=== PATIENT | male | born 1990 | race Caucasian/White ===

== ENCOUNTER 2016-10-24 13:44 | Emergency (ER) | payer MEDICAID ==
[2016-01-31 08:30] VITALS: BMI 24.4
[~2016-10-24 13:44] MED LIST: CATAPRES0.2 MG PO; DILAUDID4 MG PO; HYDROCODONE-APA1 TAB PO; PERCOCET 10/3251 TA1 PO; VALIUM5 MG PO
== END 2016-10-24 16:06 | disposition home or self-care (01) ==
LOC: D.ER 13:44
DX: M25.511 Pain in right shoulder (principal); S46.911A Strain of unspecified muscle, fascia and tendon at shoulder and upper arm level, right arm, initial encounter; X58.XXXA Exposure to other specified factors, initial encounter; Y93.89 Activity, other specified; Y92.89 Other specified places as the place of occurrence of the external cause; M25.411 Effusion, right shoulder; F41.9 Anxiety disorder, unspecified; F17.200 Nicotine dependence, unspecified, uncomplicated

== ENCOUNTER 2017-01-12 19:50 | Emergency (ER) | payer MEDICAID ==
[2016-01-31 08:30] VITALS: BMI 24.4
== END 2017-01-12 21:54 | disposition home or self-care (01) ==
LOC: D.ER 19:50
DX: S00.83XA Contusion of other part of head, initial encounter (principal); Y04.2XXA Assault by strike against or bumped into by another person, initial encounter; Y93.89 Activity, other specified; Y92.89 Other specified places as the place of occurrence of the external cause; S09.90XA Unspecified injury of head, initial encounter

== ENCOUNTER 2018-09-07 07:45 | Observation (INO) | payer MEDICAID ==
[~2018-09-07] VITALS: Ht 182.9 cm; Wt 90.9 kg
[2018-09-07 09:59] LABS: INR 1.08 (0.85-1.17); PROTIME 13.5 SECONDS (11.6-15.0)
[2018-09-07 10:04] LABS: ALBUMIN 4.2 g/dL (3.4-5.0); ALKALINE PHOSPHATASE 61 U/L (46-116); ALT (SGPT) 20 U/L (10-68); BILIRUBIN - TOTAL 0.51 mg/dL (0.2-1.3); CALC OSMOLALITY 280 mosm/kg (275-300); CALCIUM 8.6 mg/dL (8.5-10.1); CARBON DIOXIDE 22.4 mmol/L (21.0-32.0); CHLORIDE - SERUM 104 mmol/L (98-107); CREATININE - SERUM 0.9 mg/dL (0.6-1.3); GLUCOSE 109 mg/dL (74-106); MAGNESIUM - SERUM 2.1 mg/dL (1.8-2.4); POTASSIUM - SERUM 3.7 mmol/L (3.5-5.1); SODIUM 139 mmol/L (136-145); UREA NITROGEN 17 mg/dL (7-18); eGFR NON AFRICAN AMERICAN > 90 mL/min (90-120)
[2018-09-07 10:18] LABS: BASOPHILS 0.4 % (0-2); EOSINOPHILS 0.4 % (0-7); HEMATOCRIT 39.6 % (42.0-54.0); HEMOGLOBIN 13.8 g/dL (13.5-17.5); IMMATURE GRANULOCYTES 0.3 % (0-5); LYMPHOCYTES 14.5 % (15-50); MCH 29.6 pg (26.0-34.0); MCHC 34.8 g/dL (31.0-37.0); MCV 84.8 fL (80.0-100.0); MEAN PLATELET VOLUME 10.4 fL (7.4-10.4); MONOCYTES 9.8 % (2-11); NEUTROPHILS 74.6 % (40-80); PLATELET COUNT 375 10x3/uL (130-400); RBC 4.67 10x6/uL (4.20-6.10); RDW 12.5 % (11.5-14.5)
--- NOTE | 2018-09-07 10:20 | NUR ---
C-COLLAR REMOVED PER TREATING PROVIDER.
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
--- NOTE | 2018-09-07 10:52 | NUR ---
DRIED CLOOD CLEANSED FROM PT'S FACE, REVEALING A SMALL LACERATION TO THE LEFT SIDE OF PT'S NOSE. SCABBING PRESENT AND AREA IS NO LONGER BLEEDING. PT REMAINS ALERT AND ORIENTED X4.
--- NOTE | 2018-09-07 10:55 | NUR ---
SLING APPLIED TO PT'S LUE.
[2018-09-07 11:39] LABS: APPEARANCE CLEAR (CLEAR); BILIRUBIN NEGATIVE (NEGATIVE); COLOR YELLOW (YELLOW); GLUCOSE NEGATIVE (NEGATIVE); KETONE NEGATIVE (NEGATIVE); NITRITE NEGATIVE (NEGATIVE); PROTEIN NEGATIVE (NEGATIVE); SPECIFIC GRAVITY 1.015 (1.005-1.020); UROBILINOGEN NORMAL (NORMAL)
[2018-09-07 12:00] VITALS: BP 116/93
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
[2018-09-07 15:58] VITALS: BP 107/76
--- NOTE | 2018-09-07 16:05 | NUR ---
PT ARRIVED TO UNIT FROM OPERATING ROOM, OREINTED TO ROOM, FAMILY AT BEDSIDE CL IN REACH
[2018-09-07 16:39] VITALS: Ht 182.9 cm; Wt 90.9 kg
--- NOTE | 2018-09-07 18:30 | NUR ---
MULE DRIVER COMPLETE. NO SIGNS OF DISTRESS NOTED. DENIES NEEDS AT THIS TIME. CL IN REACH
--- NOTE | 2018-09-07 20:30 | NUR ---
AWAKE,ALERT.NO COMPLAINTS VOICED. LON WRAP DRESSING INTACT TO LEFT ARM WITHOUT DRAINAGE NOTED. SLING INTACT.CL IN REACH
[2018-09-07 21:02] VITALS: BP 102/65
[2018-09-08 01:33] VITALS: BP 126/74
--- NOTE | 2018-09-08 05:00 | NUR ---
EYES CLOSED RESPIRATIONS WITH EASE AND UNLOABORED.
[2018-09-08 06:05] VITALS: BP 134/64
[2018-09-08 08:17] VITALS: BP 122/70
--- NOTE | 2018-09-08 08:25 | NUR ---
PT ALERT X 4. BREATH SOUNDS CLEAR BILAT. IV TO LEFT AC, PATENT, DRESSING CLEAN DRY AND INTACT. PAIN OF 8/10, MEDICATED PER ORDERS, WILL MONITOR. FAMILY AT BEDSIDE. BED LOW, CALL LIGHT IN REACH. NO OTHER NEEDS AT THIS TIME.
[2018-09-08] MEDS ORDERED: HYDROCODON-ACE1 EAC2 PO (08:54)
[2018-09-08 11:48] LABS: BASOPHILS 0.1 % (0-2); EOSINOPHILS 0.2 % (0-7); HEMATOCRIT 36.4 % (42.0-54.0); HEMOGLOBIN 12.4 g/dL (13.5-17.5); IMMATURE GRANULOCYTES 0.2 % (0-5); LYMPHOCYTES 14.9 % (15-50); MCH 29.6 pg (26.0-34.0); MCHC 34.1 g/dL (31.0-37.0); MEAN PLATELET VOLUME 10.8 fL (7.4-10.4); MONOCYTES 13.1 % (2-11); NEUTROPHILS 71.5 % (40-80); PLATELET COUNT 331 10x3/uL (130-400); RBC 4.19 10x6/uL (4.20-6.10); RDW 13.1 % (11.5-14.5); WBC 14.9 10x3/uL (4.8-10.8)
[2018-09-08 11:49] LABS: MCV 86.9 fL (80.0-100.0)
[2018-09-08 11:58] LABS: ALBUMIN 3.4 g/dL (3.4-5.0); ALKALINE PHOSPHATASE 59 U/L (46-116); ALT (SGPT) 18 U/L (10-68); BILIRUBIN - TOTAL 0.32 mg/dL (0.2-1.3); CALC OSMOLALITY 283 mosm/kg (275-300); CARBON DIOXIDE 25.7 mmol/L (21.0-32.0); CHLORIDE - SERUM 105 mmol/L (98-107); GLUCOSE 111 mg/dL (74-106); POTASSIUM - SERUM 3.3 mmol/L (3.5-5.1); PROTEIN - SERUM 7.1 g/dL (6.4-8.2); SODIUM 142 mmol/L (136-145); UREA NITROGEN 13 mg/dL (7-18); eGFR NON AFRICAN AMERICAN > 90 mL/min (90-120)
[2018-09-08] MEDS ORDERED: PERCOCET 7.5/321 TAB PO (12:27)
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
== END 2018-09-08 14:43 | disposition home or self-care (01) ==
LOC: D.MS 07:45 → D.OPS 07:45 → D.ER 07:45 → D.OPS 12:34 → EDSTATUS 13:00 → D.MS 15:09 → D.OPS 09-08 10:34 → D.MS 09-08 10:35 → OBSVTIME 09-08 10:36 → D.MS 09-08 14:43
PROVIDERS: Emergency Medicine; Family Medicine; ADMIT Family Medicine Adult Medicine
DX: S52.302A Unspecified fracture of shaft of left radius, initial encounter for closed fracture (principal); V47.0XXA Car driver injured in collision with fixed or stationary object in nontraffic accident, initial encounter; S02.2XXA Fracture of nasal bones, initial encounter for closed fracture; F17.213 Nicotine dependence, cigarettes, with withdrawal; F32.9 Major depressive disorder, single episode, unspecified; F41.9 Anxiety disorder, unspecified; R91.1 Solitary pulmonary nodule

== ENCOUNTER 2018-09-11 17:58 | Emergency (ER) | payer MEDICAID ==
[~2018-09-11] VITALS: Ht 182.9 cm; Wt 81.8 kg
[~2018-09-11 17:58] MED LIST changes: +HYDROCODON-ACE1 EAC2 PO; +PERCOCET 7.5/321 TAB PO
[2018-09-11 18:03] VITALS: Ht 182.9 cm; Wt 81.8 kg
[2018-09-11 19:09] LABS: BASOPHILS 0.3 % (0-2); EOSINOPHILS 0.4 % (0-7); HEMATOCRIT 38.3 % (42.0-54.0); HEMOGLOBIN 13.2 g/dL (13.5-17.5); IMMATURE GRANULOCYTES 0.3 % (0-5); LYMPHOCYTES 19.8 % (15-50); MCH 29.7 pg (26.0-34.0); MCHC 34.5 g/dL (31.0-37.0); MCV 86.3 fL (80.0-100.0); MONOCYTES 10.9 % (2-11); NEUTROPHILS 68.3 % (40-80); PLATELET COUNT 380 10x3/uL (130-400); RBC 4.44 10x6/uL (4.20-6.10); RDW 12.7 % (11.5-14.5); WBC 11.2 10x3/uL (4.8-10.8)
[2018-09-11 19:22] LABS: INR 1.1 (0.85-1.17); PROTIME 13.7 SECONDS (11.6-15.0)
[2018-09-11 19:23] LABS: D-DIMER-QUANTITATIVE 1.61 ug/mLFEU (0.20-0.54)
[2018-09-11 19:32] LABS: ALKALINE PHOSPHATASE 71 U/L (46-116); ALT (SGPT) 15 U/L (10-68); BILIRUBIN - TOTAL 0.65 mg/dL (0.2-1.3); CALC OSMOLALITY 274 mosm/kg (275-300); CALCIUM 8.7 mg/dL (8.5-10.1); CARBON DIOXIDE 25.1 mmol/L (21.0-32.0); CHLORIDE - SERUM 101 mmol/L (98-107); CREATININE - SERUM 1.1 mg/dL (0.6-1.3); GLUCOSE 101 mg/dL (74-106); POTASSIUM - SERUM 3.6 mmol/L (3.5-5.1); PROTEIN - SERUM 8.1 g/dL (6.4-8.2); SODIUM 137 mmol/L (136-145); UREA NITROGEN 16 mg/dL (7-18); eGFR NON AFRICAN AMERICAN 83 mL/min (90-120)
[2018-09-11 19:39] LABS: CKMB 3.9 U/L (0.0-3.6); CREATINE KINASE 365 UL (21-232); PRO BNP 21 pg/mL (0-125); TROPONIN-I < 0.017 ng/mL (0.000-0.060)
[2018-09-11 19:55] VITALS: BP 148/85
== END 2018-09-11 19:55 | disposition home or self-care (01) ==
LOC: D.ER 17:58
PROVIDERS: Family Medicine
DX: Z98.890 Other specified postprocedural states (principal); R07.89 Other chest pain; R06.02 Shortness of breath